=== PATIENT | male | born 1965 | race African-American/Black ===

== ENCOUNTER 2017-12-08 14:43 | Emergency (ER) | payer BC ==
[~2017-12-08] VITALS: Ht 182.9 cm; Wt 122.7 kg
[2017-12-08 14:46] VITALS: BP 143/85; TEMP 99
[2017-12-08] MEDS ORDERED: NORCO 325 MG-51 TAB PO (15:18)
[2017-12-08] MEDS ORDERED: INDOCIN50 MG PO (15:18)
[2017-12-08 15:45] VITALS: PULSE 70
== END 2017-12-08 15:45 | disposition home or self-care (01) ==
LOC: COL.ER 14:43
DX: M70.21 Olecranon bursitis, right elbow (principal); X50.3XXA Overexertion from repetitive movements, initial encounter; Y93.D9 Activity, other involving arts and handcrafts
CPT/HCPCS: J2270